=== PATIENT | female | born 1930 | race Caucasian/White ===

== ENCOUNTER 2018-04-10 08:08 | Inpatient (IN) ==
[2018-04-10] MEDS ORDERED: ONDANSETRON ODT 4 MG TABLET PO STA (08:41)
[2018-04-10] MEDS ORDERED: DILTIAZEM 50 MG/10 ML VIAL IV STA (08:42)
[2018-04-10 08:57] LABS: Basophils # 0.1 10*3/uL (0.0-0.2); Basophils % 0.8 % (0.0-0.8); Eosinophils # 0.2 10*3/uL (0.0-0.87); Hematocrit 33.5 VOL% (35.7-47.0); Hemoglobin 11.2 GM/DL (12.0-16.0); Immature Granulocytes % 0.5 %; Immature Granulocytes Absolute 0.05 #; Lymphocytes # 1.8 10*3/uL (1.4-4.0); Lymphocytes % 18.8 % (21.3-54.2); Mean Corpuscular HGB Conc 33.4 GM/DL (32-36); Mean Corpuscular Hemoglobin 32 PG (27-34); Mean Corpuscular Volume 94.9 FL (87-102); Monocytes # 1.1 10*3/uL (0.11-0.8); Monocytes % 11.8 % (1.7-12.7); Neutrophils # 6.2 10*3/uL (1.4-7.4); Neutrophils % 66.1 % (38.7-73.9); Platelet Count 288 T/CUMM (130-400); Red Blood Count 3.53 MC/CUMM (3.8-5.5); Red Cell Distribution Width 13.1 % (9.3-17.3); White Blood Count 9.3 T/CUMM (4-12)
[2018-04-10] MEDS ORDERED: FUROSEMIDE 40 MG/4 ML VIAL IV STA (09:05)
[2018-04-10] MEDS: DILTIAZEM INJ 100 MG in SODIUM CHLORIDE 0.9% 100 ML IV SCH (09:07)
[2018-04-10 09:15] LABS: Partial Thromboplastin Time 38.8 SECS (0-40)
[2018-04-10 09:25] LABS: Albumin 2.7 G/DL (3.4-5.0); Bilirubin,Total 0.8 MG/DL (0.2-1.0); Calcium 8.7 MG/DL (8.5-10.1); Osmolality,Calculated 278.4 MOS/KG (273-304); Potassium 3.6 MMOL/L (3.5-5.1); Troponin I Only 0.023 NG/ML (0.00-0.045)
[2018-04-10] MEDS ORDERED: ONDANSETRON 4 MG/2 ML VIAL IV PRN (11:00)
[2018-04-10] MEDS ORDERED: ACETAMINOPHEN 325 MG TABLET PO PRN (11:00)
[2018-04-10] MEDS: FUROSEMIDE 40 MG/4 ML VIAL IV SCH (16:08)
[2018-04-10 17:27] LABS: Apearance,Urine CLEAR (Clear); Bilirubin,Urine Negative (Negative); Blood, Urine Small mg/dL (Negative); Glucose,Urine (UA) Negative (Negative); Ketones,Urine Negative (Negative); Mucus,Urine Occasional /LPF (Occasional); Nitrite,Urine Negative (Negative); Protein,Urine Negative; RBC,Urine 1 /HPF (0-4); Squamous Epithelial Cell,Urine Occasional /HPF (0-10); Urine Color Straw (Yellow); Urine Specific Gravity 1.004 (1.001-1.035); Urine Urobilinogen < 2.0 EU/DL (0.2-1.0); WBC,Urine 1 /HPF (0-6)
[2018-04-10] MEDS ORDERED: POTASSIUM CHLORIDE 20 MEQ PACK PO ONE (17:54)
[2018-04-10] MEDS: CHOLECALCIFEROL 1,000 UNIT TABLET PO SCH (21:17)
[2018-04-10] MEDS: APIXABAN 5 MG TABLET PO SCH (21:17)
[2018-04-10] MEDS: METOPROLOL TARTRATE 25 MG TABLET PO SCH (21:17)
[2018-04-10] MEDS: LISINOPRIL 2.5 MG TABLET PO SCH (21:17)
[2018-04-11 04:51] LABS: Basophils # 0.1 10*3/uL (0.0-0.2); Basophils % 0.7 % (0.0-0.8); Eosinophils # 0.4 10*3/uL (0.0-0.87); Eosinophils % 4.5 % (0.00-10.9); Hematocrit 32.8 VOL% (35.7-47.0); Hemoglobin 10.8 GM/DL (12.0-16.0); Immature Granulocytes % 0.4 %; Immature Granulocytes Absolute 0.03 #; Lymphocytes # 2.3 10*3/uL (1.4-4.0); Lymphocytes % 27.6 % (21.3-54.2); Mean Corpuscular HGB Conc 32.9 GM/DL (32-36); Mean Corpuscular Hemoglobin 32 PG (27-34); Mean Corpuscular Volume 96.5 FL (87-102); Mean Platelet Volume 10.1 FL (9.6-12.0); Monocytes # 1.1 10*3/uL (0.11-0.8); Monocytes % 13.3 % (1.7-12.7); Neutrophils # 4.4 10*3/uL (1.4-7.4); Neutrophils % 53.5 % (38.7-73.9); Platelet Count 278 T/CUMM (130-400); Red Cell Distribution Width 13.2 % (9.3-17.3); White Blood Count 8.3 T/CUMM (4-12)
[2018-04-11 07:03] LABS: Calcium 8.4 MG/DL (8.5-10.1); Osmolality,Calculated 280.3 MOS/KG (273-304)
[2018-04-11 07:05] LABS: Risk Ratio 3.93; Thyroid Stimulating Hormone 0.892 uIU/ml (0.358-3.74); VLDL CHOLESTEROL 26.8 MG/DL
[2018-04-11 07:31] LABS: Potassium 3.4 MMOL/L (3.5-5.1)
[2018-04-11] MEDS: PANTOPRAZOLE 40 MG TABLET PO SCH (08:53)
[2018-04-11] MEDS: METOPROLOL TARTRATE 25 MG TABLET PO SCH ×2 (08:53→21:10)
[2018-04-11] MEDS: ChlordiazePOXIDE/CLIDINIUM 5-2.5 MG CAPSULE PO SCH (08:53)
[2018-04-11] MEDS: MELOXICAM 7.5 MG TABLET PO SCH (08:53)
[2018-04-11] MEDS: ESCITALOPRAM 10 MG TABLET PO SCH (08:54)
[2018-04-11] MEDS: FUROSEMIDE 40 MG/4 ML VIAL IV SCH ×2 (08:54→15:42)
[2018-04-11] MEDS: APIXABAN 5 MG TABLET PO SCH ×2 (08:54→21:10)
[2018-04-11] MEDS: CHOLECALCIFEROL 1,000 UNIT TABLET PO SCH ×2 (08:54→21:10)
[2018-04-11] MEDS: SPIRONOLACTONE 25 MG TABLET PO SCH (08:54)
[2018-04-11] MEDS ORDERED: FUROSEMIDE 20 MG TABLET PO SCH (09:00)
[2018-04-11] MEDS ORDERED: METOPROLOL SUCCINATE XL 25 MG TABLET PO SCH (09:00)
[2018-04-11] MEDS: DILTIAZEM INJ 100 MG in SODIUM CHLORIDE 0.9% 100 ML IV SCH (10:02)
[2018-04-11] MEDS ORDERED: ALBUTEROL/IPRATROPIUM 3 ML NEB RESP TX PRN (20:14)
[2018-04-11] MEDS: LISINOPRIL 2.5 MG TABLET PO SCH (21:09)
[2018-04-12 04:22] LABS: Basophils # 0.1 10*3/uL (0.0-0.2); Basophils % 1.2 % (0.0-0.8); Eosinophils # 0.4 10*3/uL (0.0-0.87); Eosinophils % 6.4 % (0.00-10.9); Hematocrit 33.5 VOL% (35.7-47.0); Hemoglobin 11.5 GM/DL (12.0-16.0); Immature Granulocytes % 0.3 %; Immature Granulocytes Absolute 0.02 #; Lymphocytes # 2.3 10*3/uL (1.4-4.0); Lymphocytes % 35.2 % (21.3-54.2); Mean Corpuscular HGB Conc 34.3 GM/DL (32-36); Mean Corpuscular Hemoglobin 32 PG (27-34); Mean Corpuscular Volume 94.1 FL (87-102); Mean Platelet Volume 10.2 FL (9.6-12.0); Monocytes # 0.8 10*3/uL (0.11-0.8); Monocytes % 12.1 % (1.7-12.7); Neutrophils # 2.9 10*3/uL (1.4-7.4); Neutrophils % 44.8 % (38.7-73.9); Platelet Count 309 T/CUMM (130-400); Red Blood Count 3.56 MC/CUMM (3.8-5.5); Red Cell Distribution Width 12.9 % (9.3-17.3); White Blood Count 6.4 T/CUMM (4-12)
[2018-04-12 05:35] LABS: Calcium 8.3 MG/DL (8.5-10.1); Osmolality,Calculated 276.7 MOS/KG (273-304); Potassium 3.4 MMOL/L (3.5-5.1)
[2018-04-12 05:36] LABS: Calcium 8.4 MG/DL (8.5-10.1); Osmolality,Calculated 276.7 MOS/KG (273-304); Potassium 3.4 MMOL/L (3.5-5.1)
[2018-04-12] MEDS: POTASSIUM CHLORIDE 20 MEQ TABLET PO PRN ×3 (06:24→11:29)
[2018-04-12] MEDS: MELOXICAM 7.5 MG TABLET PO SCH (09:03)
[2018-04-12] MEDS: METOPROLOL TARTRATE 25 MG TABLET PO SCH ×2 (09:04→21:02)
[2018-04-12] MEDS: CHOLECALCIFEROL 1,000 UNIT TABLET PO SCH ×2 (09:04→21:02)
[2018-04-12] MEDS: APIXABAN 5 MG TABLET PO SCH ×2 (09:04→21:02)
[2018-04-12] MEDS: ESCITALOPRAM 10 MG TABLET PO SCH (09:04)
[2018-04-12] MEDS: SPIRONOLACTONE 25 MG TABLET PO SCH (09:04)
[2018-04-12] MEDS: PANTOPRAZOLE 40 MG TABLET PO SCH (09:05)
[2018-04-12] MEDS: FUROSEMIDE 40 MG/4 ML VIAL IV SCH ×2 (09:09→16:03)
[2018-04-12] MEDS: ChlordiazePOXIDE/CLIDINIUM 5-2.5 MG CAPSULE PO SCH (10:16)
[2018-04-12] MEDS: LISINOPRIL 2.5 MG TABLET PO SCH (21:02)
[2018-04-13 05:48] LABS: Osmolality,Calculated 278.7 MOS/KG (273-304); Potassium 4.1 MMOL/L (3.5-5.1)
[2018-04-13] MEDS ORDERED: METOPROLOL SUCCINATE XL 25 MG TABLET PO SCH (09:00)
[2018-04-13] MEDS: PANTOPRAZOLE 40 MG TABLET PO SCH (09:01)
[2018-04-13] MEDS: FUROSEMIDE 40 MG/4 ML VIAL IV SCH (09:01)
[2018-04-13] MEDS: MELOXICAM 7.5 MG TABLET PO SCH (09:01)
[2018-04-13] MEDS: APIXABAN 5 MG TABLET PO SCH (09:01)
[2018-04-13] MEDS: ChlordiazePOXIDE/CLIDINIUM 5-2.5 MG CAPSULE PO SCH (09:01)
[2018-04-13] MEDS: ESCITALOPRAM 10 MG TABLET PO SCH (09:01)
[2018-04-13] MEDS: CHOLECALCIFEROL 1,000 UNIT TABLET PO SCH (09:01)
[2018-04-13] MEDS: SPIRONOLACTONE 25 MG TABLET PO SCH (09:01)
[2018-04-13 12:00] VITALS: BP 111/56
== END 2018-04-13 15:23 | disposition home health service (06) | DRG 308 ==
LOC: EDBD → EDUNIT# → N.ED 08:08 → N.EDINP 09:51 → N.TELEN 18:22
PROVIDERS: ADMIT Internal Medicine; ATTEND Internal Medicine